=== PATIENT | male | born 1995 | race Caucasian/White ===

== ENCOUNTER 2019-12-28 21:35 | Inpatient (IN) | payer SELFPAY ==
[~2019-12-28] VITALS: Ht 175.3 cm; Wt 83.9 kg
[2019-12-28 21:46] VITALS: BP 136/86
--- NOTE | 2019-12-28 21:52 | NUR ---
PT TAKEN TO BED 7
--- NOTE | 2019-12-28 21:52 | NUR ---
Dr. Ventura examining patient.
--- NOTE | 2019-12-28 22:00 | NUR ---
This a 24-year-old male with no past medical history, presenting to the emergency department for acute onset, constant right lower quadrant pain today. Patient states that his pain originated in the mid abdomen and migrated to his right lower quadrant throughout the day. Pain is mild. Symptoms started at rest. Patient states that he had problems in the past with constipation and that this feels somewhat similar. He complains of chills earlier in the day. He states that he felt warm when his pain was at its peak. He states that he had a very small bowel movement this morning. He endorses nausea but no vomiting. No alleviating or exacerbating factors. Otherwise, no diarrhea, trauma, dysuria, or any other complaints. ALLERGY: NKDA PMH: NONE SURGICAL HX: NONE
--- NOTE | 2019-12-28 22:02 | NUR ---
LABS AT THE BEDSIDE.
--- NOTE | 2019-12-28 22:05 | NUR ---
PT GOING TO XRAY DEPARMENT
--- NOTE | 2019-12-28 22:12 | NUR ---
PT BACK FROM XRAY DEPARTMENT
[2019-12-28 22:13] LABS: BASOPHILS % (AUTO) 0.1 % (0.0-2.0); HEMATOCRIT 43.2 % (36-52); HEMOGLOBIN 14.8 g/dL (12.0-18.0); LYMPHOCYTES # (AUTO) 1.6 K/uL (2.0-11.5); LYMPHOCYTES % (AUTO) 8.8 % (20.5-51.1); MEAN CORPUSCULAR HEMOGLOBIN 29 pg (27-31); MEAN CORPUSCULAR HGB CONC 34 g/dL (33-37); MEAN CORPUSCULAR VOLUME 85.3 fL (80-94); MONOCYTES # (AUTO) 1.4 K/uL (0.8-1.0); MONOCYTES % (AUTO) 7.8 % (1.7-9.3); NEUTROPHILS # (AUTO) 14.6 K/uL (1.8-7.7); NEUTROPHILS % (AUTO) 83.3 % (42.2-75.2); PLATELET COUNT (AUTO) 228 K/uL (140-450); RED BLOOD CELL COUNT(AUTO) 5.06 MIL/uL (4.20-6.10); WHITE BLOOD COUNT (AUTO) 17.6 K/uL (4.8-10.8)
[2019-12-28] MEDS ORDERED: ONDANSETRON 4 MG/2 ML VIAL IVP ONE (23:25)
[2019-12-28] MEDS ORDERED: KETOROLAC 30 MG/ML VIAL IVP ONE (23:25)
[2019-12-28] MEDS ORDERED: NACL 0.9% 1,000 ML IV ONE (23:25)
[2019-12-28] MEDS ORDERED: metroNIDAZOLE 500 MG/NS PREMIX 100 ML IV ONE (23:25)
[2019-12-28] MEDS ORDERED: PIPERACILLIN/TAZOBACTAM 3.375 GM in DEXTROSE 5% 50 ML IV ONE (23:25)
[2019-12-28] MEDS ORDERED: PIPERACILLIN/TAZOBACTAM 3.375 GM VIAL IV ONE (23:31)
[2019-12-28] MEDS ORDERED: ACETAMINOPHEN 325 MG TAB PO PRN (23:45)
[2019-12-28] MEDS ORDERED: guaiFENesin DM 200/20 MG-10 ML 10 ML UDC PO PRN (23:45)
[2019-12-28] MEDS ORDERED: DOCUSATE SODIUM 100 MG GELCAP PO PRN (23:45)
[2019-12-28] MEDS ORDERED: POTASSIUM CHLORIDE 10 MEQ TABER PO PRN (23:45)
[2019-12-28] MEDS: DEXT 5% /NACL 0.9% 1,000 ML IV SCH (23:45)
[2019-12-28] MEDS ORDERED: ZOLPIDEM 5 MG TAB PO PRN (23:45)
[2019-12-29 00:08] LABS: ALBUMIN 4.4 g/dL (3.4-5.0); ANION GAP 14.1 (8-16); CARBON DIOXIDE 25.5 mmol/L (21-32); POTASSIUM 3.6 mmol/L (3.5-5.1); TOTAL BILIRUBIN 1.1 mg/dL (0.0-1.0)
--- NOTE | 2019-12-29 00:10 | NUR ---
CECE ARIZMENDI OBTAINED AND URINE SAMPLES.SENT IT TO THE LAB.
[2019-12-29 00:18] LABS: PROTHROMBIN TIME 10.3 secs (10.8-13.4)
[2019-12-29 00:19] LABS: CHOL/HDL RATIO 4.3 (1-4.5); FREE T4 (FREE THYROXINE) 1.2 ng/dL (0.76-1.46); PHOSPHORUS 3.6 mg/dL (2.5-4.9); THYROID STIMULATING HORMONE 0.38 uIU/mL (0.34-3.74)
[2019-12-29 00:28] LABS: APPEARANCE,URINE CLEAR (CLEAR); BILIRUBIN,URINE NEGATIVE (NEGATIVE); BLOOD, URINE NEGATIVE (NEGATIVE); COLOR,URINE YELLOW (YELLOW); LEUKOCYTE ESTERASE ,URINE NEGATIVE (NEGATIVE); NITRITE, URINE NEGATIVE (NEGATIVE); PH,URINE 7.5 (5.0-9.0); UGLUCOSE NEGATIVE (NEGATIVE)
[2019-12-29 00:35] LABS: BARBITURATE, URINE NEGATIVE ng/ml (NEG <=200); BENZODIAZEPINE, URINE NEGATIVE ng/mL (NEG <=200); CANNABINOID, URINE NEGATIVE ng/mL (NEG <=50); COCAINE, URINE NEGATIVE ng/mL (NEG <=300); OPIATE, URINE NEGATIVE ng/mL (NEG <=2000); PHENCYCLIDINE SCREEN,URINE NEGATIVE ng/mL (NEG <=25)
--- NOTE | 2019-12-29 00:45 | NUR ---
Patient will be admitted to care of DR DEGROOT. Admited to MEDICAL SURGICAL FLOOR. Will go to room 126 B. Belongings list completed. Report to FRANCES DIEGO.
[2019-12-29 01:00] VITALS: BP 132/68
--- NOTE | 2019-12-29 01:30 | NUR ---
PT CAME UP BY MANDA, ABLE TO AMBULATE INDEPENDENTLY SKIN INTACT HAS IV SITE ON LAC 18G FINISHING FLAGYL.
--- NOTE | 2019-12-29 02:15 | NUR ---
FLAGYL DONE NO C/O VOICED BY PT AT THIS TIME, MRSA SWAB DONE ADMISSION V/S IN NORMAL LIMITS.
--- NOTE | 2019-12-29 03:30 | NUR ---
PT IN BED RESTING, D5N/S HUNG AND RUNNING AT 120MLD/HR ORDERED.
[2019-12-29 05:45] LABS: BASOPHILS % (AUTO) 0.1 % (0.0-2.0); EOSINOPHILS % (AUTO) 0.1 % (0.0-4.0); HEMATOCRIT 42.8 % (36-52); HEMOGLOBIN 14.6 g/dL (12.0-18.0); LYMPHOCYTES # (AUTO) 1.8 K/uL (2.0-11.5); LYMPHOCYTES % (AUTO) 10.5 % (20.5-51.1); MEAN CORPUSCULAR HEMOGLOBIN 29 pg (27-31); MEAN CORPUSCULAR HGB CONC 34 g/dL (33-37); MEAN CORPUSCULAR VOLUME 85.8 fL (80-94); MONOCYTES # (AUTO) 1.5 K/uL (0.8-1.0); MONOCYTES % (AUTO) 8.7 % (1.7-9.3); NEUTROPHILS # (AUTO) 13.6 K/uL (1.8-7.7); NEUTROPHILS % (AUTO) 80.6 % (42.2-75.2); PLATELET COUNT (AUTO) 203 K/uL (140-450); RED BLOOD CELL COUNT(AUTO) 4.99 MIL/uL (4.20-6.10); RED CELL DISTRIBUTION WIDTH 13.6 % (11.6-13.7); WHITE BLOOD COUNT (AUTO) 16.9 K/uL (4.8-10.8)
[2019-12-29 06:01] LABS: ANION GAP 10.1 (8-16); CARBON DIOXIDE 28.8 mmol/L (21-32); POTASSIUM 3.9 mmol/L (3.5-5.1)
[2019-12-29] MEDS: HYDROcodone/APAP 7.5/325 MG 1 TAB PO PRN (06:16)
--- NOTE | 2019-12-29 06:30 | NUR ---
PT C/O OF MODERATE PAIN GIVEN NORCO PO/PRN , HE ALSO C/O OF FEVER TEMP WAS 100, HE WAS GIVEN COOLING MEASURES. WILL ENDORSE TO MONITOR.
--- NOTE | 2019-12-29 07:30 | NUR ---
RECEIVED PATIENT FROM GOSPEL SINGER NURSE JOHNATHON FOR CONTINUITY OF CARE. PATIENT IN STABLE CONDITION. RESPIRATIONS EVEN AND UNLABORED,ROOM AIR. IV INTACT AND PATENT. SAFETY MEASURES IN PLACE. CALL LIGHT WITHIN REACH. BED IN LOW POSITION. WILL CONTINUE TO MONITOR.
[2019-12-29] MEDS: DEXT 5% /NACL 0.9% 1,000 ML IV SCH ×3 (08:05→23:09)
[2019-12-29 08:30] VITALS: BP 123/69
--- NOTE | 2019-12-29 08:34 | NUR ---
PATIENT HAS BEEN SCREENED AND CATEGORIZED LOW NUTRITION RISK. PATIENT WILL BE SEEN WITHIN 7 DAYS OF ADMISSION. 01/04/[address]
--- NOTE | 2019-12-29 08:37 | NUR ---
GAVE REPORT TO DAY SHIFT NURSE FOR CONTINUITY OF CARE. PATIENT IN STABLE CONDITION.
--- NOTE | 2019-12-29 08:40 | NUR ---
ASSUMED CARE FROM FAWN. PT AAOX4. NO SOB NOTED. NO COMPLAINTS MADE AT THIS TIME. NPO MAINTAINED FOR PROCEDURE. WILL CONTINUE TO MONITOR PT.
--- NOTE | 2019-12-29 08:54 | NUR ---
DISCHARGE PLANNING: THIS IS A 24 Y/O MALE PATIENT FROM HOME, WHO CAME IN DUE TO ACUTE ONSET , CONSTANT RLQ PAIN. NO SIGNIFICANT PAST MEDICAL HISTORY. INITIAL DIAGNOSIS OF ACUTE APPENDICITIS. CURRENT LABS INCLUDE WBC 16.9, H/H 14.6/42.8, NA/K 139/3.9, BUN/CREA 9/1.0. RAPID COVID TEST NEGATIVE. UDS NEGATIVE. ON LEVAQUIN. XR ACUTE ABD SERIES NON SPECIFIC GAS FILLED LOOPS OF BOWEL. NO ACUTE CARDIOPULMONARY DISEASE. SURGICAL CONSULT IN PLACE. DC PLAN BACK TO HOME ONCE STABLE. Addendum: 12/30/19 at 1045 by Minnie Noriega CM S/P LAP APPENDECTOMY WITH [address] LANDRY 12/29/2019. ON [facility]. SEEN BY SURGERY - WITH ORDERS TO DC MINA, REBECCA ROSALES WHEN FULLY AWAKE AND ALERT. Addendum: 12/31/19 at 1054 by Minnie Noriega CM CURRENT LABS INCLUDE 14.4, H/H 11.1/33.0, BUN/CREA 6/0.9. SEEN BY SURGERY - ADVANCED DIET TOLERATED. ENCOURAGE AMBULATION WHEN FULLY AWAKE AND ALERT. REPEAT LABS IN AM. TRACY DRAIN OUTPUT OVERNIGHT 447 ML. Addendum: 01/01/20 at 0916 by Minnie Noriega CM TRACY DRAINS STILL WITH TOTAL OF 475 ML OUTPUT. WBC WENT UP TODAY 17.5. ON ZOSYN. Addendum: 01/02/20 at 1137 by Minnie Noriega CM PER DR FRANTZ ANAYA TO DC WITH TRACY DRAINS AND INFORM PATIENT TO CALL HIS OFFICE ON SUNDAY TO SET UP FOLLOW UP VISIT OP.
[2019-12-29] MEDS ORDERED: PANTOPRAZOLE 40 MG TABEC PO SCH (09:00)
--- NOTE | 2019-12-29 09:00 | NUR ---
PT WHEELED TO SURGERY IN STABLE CONDITION. NO SOB NOTED. NO COMPLAINTS MADE. CONSENT FOR PROCEDURE ALREADY SIGNED BY PT. NPO MAINTAINED.
[2019-12-29] MEDS ORDERED: BUPIVACAINE MPF 0.25% 10 ML VIAL INJ ONE ×2 (09:03→09:26)
[2019-12-29] MEDS ORDERED: DESFLURANE 240 ML BTL INH ONE (09:08)
[2019-12-29] MEDS ORDERED: SUGAMMADEX SODIUM 200 MG/2 ML VIAL IV ONE (09:08)
[2019-12-29] MEDS ORDERED: SUCCINYLCHOLINE CHLORIDE 200 MG/10 ML VIAL IVP ONE ×2 (09:08→19:15)
[2019-12-29] MEDS ORDERED: KETOROLAC 30 MG/ML VIAL ONE (09:08)
[2019-12-29] MEDS ORDERED: ONDANSETRON 4 MG/2 ML VIAL ONE ×2 (09:08→19:15)
[2019-12-29] MEDS ORDERED: fentaNYL citrate 0.05 MG/ML VIAL ONE ×2 (09:08→19:15)
[2019-12-29] MEDS ORDERED: PROPOFOL 200 MG/20 ML VIAL IV ONE ×2 (09:08→19:15)
[2019-12-29] MEDS ORDERED: HYDROmorphone PFS 2 MG/ML SYR ONE ×3 (09:08→19:15)
[2019-12-29] MEDS ORDERED: DEXAMETHASONE 4 MG/ML VIAL ONE (09:08)
[2019-12-29] MEDS ORDERED: ROCURONIUM 50 MG/5 ML VIAL IV ONE ×2 (09:08→19:15)
[2019-12-29] MEDS ORDERED: ONDANSETRON 4 MG/2 ML VIAL IVP PRN ×2 (09:30→20:40)
--- NOTE | 2019-12-29 10:04 | NUR ---
SOCIAL WORK NOTE: ANITHA CONTACTED PATIENT [phone] AND PATIENT'S EMERGENCY CONTACT, SARAH BENITEZ [phone]. ANITHA LEFT FOR EACH AND WILL FOLLOW UP TO COMPLETE ASSESSMENT. Addendum: 12/29/19 at 1209 by Morro MARKS ANITHA ATTEMPTED TO MEET PATIENT AT BEDSIDE BUT PATIENT WAS IN OR. Addendum: 12/29/19 at 1350 by Morro Woodard [facility] Patient: Kemal Arana : 1995 Age/Sex: 24/M Unit#: [id number] Room/Bed: 126/B User: Morro MARKS Date: 12/29/19 13:47 Type: Discharge Plan Assessment Patient's Orientation Person Situation Place Time Information Provided By PATIENT Comments SW CONTACTED PATIENT'S ROOM PHONE TO COMPLETE ASSESSMENT. Insulation Mechanic, Realtionship and Phone Number SARAH GONCALVES [phone] [facility] Power of Decorating And Assembly Supervisor No Does Patient Have a POLST No Identifying Problems No Social Work Triggers Is A Social Work Consult Needed No Mandate Report Filed No Explanation Of Identifying Problems PATIENT IS A 24-YEAR-OLD MALE ADMITTED FOR ACUTE APPENDICITIS. PATIENT HAS NO SIGNIFICANT PMHX. PATIENT REPORTED NO HISTORY OF SUBSTANCE ABUSE OR MENTAL HEALTH. Admitted From Home Pre-Admission Level Of Functioning Status Independent/Ambulatory Prior Resources/Services Used In Last 12 Months No Prior Resources Used Prior DME No Prior DME Used Dialysis Comments PATIENT REPORTED NOT RECEIVING DIALYSIS. Living Situation Lives With Family House Patient Had Caregiver No Home Support No Caregiver Issues Financial Issues Uninsured/Underinsured Referral To The Financial Counselor Needed No Explanation And Or Other Financial Issues SW REFERRED PATIENT TO [facility] REP JONES. Factors/Needs No D/C Needs Identified Pt/Rep Participated In Discharge Plan Yes Patient/Family Agress With Discharge Plan Yes Discharge Plan Comments TENTATIVE DISCHARGE PLAN IS FOR PATIENT TO RETURN HOME. DC Plan Status Initiated
[2019-12-29 10:14] VITALS: BP 123/69
[2019-12-29] MEDS: HYDROmorphone 1 MG/ML AMP IVP PRN ×5 (11:20→18:00)
[2019-12-29 12:00] VITALS: BP 120/70
[2019-12-29] MEDS: PIPERACILLIN/TAZOBACTAM 3.375 GM in DEXTROSE 5% 50 ML IV SCH ×3 (12:00→23:08)
--- NOTE | 2019-12-29 12:20 | NUR ---
PT BACK FROM SURGERY S/P LAP APPY. V/S MONITORING STARTED. TRACY DRAIN ON LEFT LOWER ABD DRAINING BRIGHT RED BLOOD. DRAINED 50CC IN RECOVERY
--- NOTE | 2019-12-29 14:00 | NUR ---
C/O ABD PAIN. NORCO GIVEN ORDERED
--- NOTE | 2019-12-29 15:00 | NUR ---
TRACY DRAIN DRAINING BRIGHT RED BLOOD. DRAINED 70CC
--- NOTE | 2019-12-29 15:45 | NUR ---
TRACY DRAIN DRAINING BRIGHT RED BLOOD. DRAINED 90CC. CALLED DR. LOCO. ORDERED STAT CBC, BMP AND TO CONTINUE MONITORING DRAINAGE
[2019-12-29 16:00] VITALS: BP 105/53
--- NOTE | 2019-12-29 17:00 | NUR ---
TRACY DRAIN DRAINING BRIGHT RED BLOOD. DRAINED 90CC. TOTAL DRAINAGE OF 300CC SINCE RETURN FROM OR. NOTIFIED DR. DEGROOT AND DR. LOCO
[2019-12-29 17:20] LABS: HEMATOCRIT 36.5 % (36-52); HEMOGLOBIN 12.1 g/dL (12.0-18.0); MEAN CORPUSCULAR HEMOGLOBIN 29 pg (27-31); MEAN CORPUSCULAR HGB CONC 33 g/dL (33-37); MEAN CORPUSCULAR VOLUME 86.6 fL (80-94); PLATELET COUNT (AUTO) 201 K/uL (140-450); RED BLOOD CELL COUNT(AUTO) 4.22 MIL/uL (4.20-6.10); RED CELL DISTRIBUTION WIDTH 13.4 % (11.6-13.7); WHITE BLOOD COUNT (AUTO) 13.9 K/uL (4.8-10.8)
[2019-12-29 17:36] LABS: ANION GAP 14.4 (8-16); CARBON DIOXIDE 25.6 mmol/L (21-32); CREATININE 1.2 mg/dL (0.6-1.3)
[2019-12-29 17:42] LABS: LYMPHOCYTES % (MANUAL) 8 % (20-46)
--- NOTE | 2019-12-29 18:00 | NUR ---
DR LOCO CAME AND SEEN PT. WILL DO DIAGNOSTIC LAPAROSCOPY STAT. CONSENT OBTAINED
--- NOTE | 2019-12-29 19:00 | NUR ---
PT OFF UNIT TO OR
--- NOTE | 2019-12-29 19:10 | NUR ---
RECEIVED REPORT FROM DAY SHIFT NURSE. PATIENT IS OFF UNIT TO OR. AWAITING FOR PATIENT
[2019-12-29] MEDS ORDERED: GLYCOPYRROLATE 0.2 MG/ML VIAL ONE (19:15)
[2019-12-29] MEDS ORDERED: MEPERIDINE 25 MG/ML SYR ONE (19:15)
[2019-12-29] MEDS ORDERED: NEOSTIGMINE 1:1000 10 MG/10 ML VIAL ONE (19:15)
[2019-12-29] MEDS ORDERED: SEVOFLURANE 250 ML BTL INH ONE (19:15)
[2019-12-29] MEDS ORDERED: ETOMIDATE 20 MG/10 ML VIAL IVP ONE (19:15)
[2019-12-29] MEDS ORDERED: METOCLOPRAMIDE 10 MG/2 ML INJ VIAL ONE (19:15)
[2019-12-29] MEDS ORDERED: LIDOCAINE 2% 100 MG/5 ML SYR IVP ONE (19:15)
[2019-12-29] MEDS: LACTATED RINGERS 1,000 ML IV SCH (20:36)
[2019-12-29] MEDS ORDERED: diphenhydrAMINE 50 MG/ML VIAL IVP PRN (20:40)
[2019-12-29] MEDS ORDERED: HYDROmorphone 1 MG/ML AMP IVP PRN (20:40)
[2019-12-29] MEDS ORDERED: MEPERIDINE 25 MG/ML SYR IVP PRN (20:40)
[2019-12-29] MEDS: HYDROmorphone PFS 2 MG/ML SYR ONE ×3 (21:25→21:45)
--- NOTE | 2019-12-29 22:25 | NUR ---
PT BACK FROM SURGERY. DIAGNOSTIC LAPAROSCOPIC EXAMINATION DONE. V/S MONITORING STARTED. 2 TRACY DRAIN NOTED BOTH DRAINING BRIGHT RED BLOOD. 4 INCISION NOTED WITH DRESSING IN PLACE. CLEAN AND DRY. ROSALES CATHETER DRAINING YELLOW URINE NOTED. PATIENT DENIES PAIN. WILL CONTINUE TO MONITOR.
--- NOTE | 2019-12-29 22:30 | NUR ---
CALLED PATIENTS MOM TO GIVE REPORT REGARDING PATIENT STATUS. MOM IS FULLY AWARE AND UNDERSTAND PLAN OF CARE. WILL CONTINUE TO MONITOR.
--- NOTE | 2019-12-29 23:30 | NUR ---
CHECK NG-TUBE PLACEMENT AND PATENCY. CHECKED NG-TUBE RESIDUAL OBTAINED 5CC. FLUSH WITH 20CC NS ORDER. CONNECT PATIENT NGTUBE TO LOW CONTINUOS SUCTION PER ORDER. WILL CONTINUE TO MONITOR
--- NOTE | 2019-12-30 00:10 | NUR ---
POST OP VITALS DONE. EMPTY BOTH TRACY DRAIN. TRACY A: 30CC TRACY B: 20CC OUTPUT. WILL CONTINUE TO MONITOR
[2019-12-30 00:17] LABS: BASOPHILS % (AUTO) 0.1 % (0.0-2.0); HEMATOCRIT 32.9 % (36-52); HEMOGLOBIN 11.1 g/dL (12.0-18.0); LYMPHOCYTES # (AUTO) 1.5 K/uL (2.0-11.5); LYMPHOCYTES % (AUTO) 11.3 % (20.5-51.1); MEAN CORPUSCULAR HEMOGLOBIN 29 pg (27-31); MEAN CORPUSCULAR HGB CONC 34 g/dL (33-37); MEAN CORPUSCULAR VOLUME 85.9 fL (80-94); MONOCYTES # (AUTO) 0.8 K/uL (0.8-1.0); MONOCYTES % (AUTO) 5.8 % (1.7-9.3); NEUTROPHILS # (AUTO) 11.2 K/uL (1.8-7.7); NEUTROPHILS % (AUTO) 82.8 % (42.2-75.2); PLATELET COUNT (AUTO) 174 K/uL (140-450); RED BLOOD CELL COUNT(AUTO) 3.83 MIL/uL (4.20-6.10); RED CELL DISTRIBUTION WIDTH 13.5 % (11.6-13.7); WHITE BLOOD COUNT (AUTO) 13.6 K/uL (4.8-10.8)
[2019-12-30 01:05] VITALS: BP 108/62
[2019-12-30] MEDS: HYDROmorphone 1 MG/ML AMP IVP PRN ×2 (01:38→10:02)
--- NOTE | 2019-12-30 02:21 | NUR ---
CHECKED PATIENT. PATIENT SLEEPING RESPIRATION EVEN UNLABORED ON ROOM AIR. NO DISTRESS NOTED.
[2019-12-30] MEDS ORDERED: LEVOFLOXACIN 750 MG/D5W PREMIX 150 ML IV SCH (03:00)
[2019-12-30] MEDS: LACTATED RINGERS 1,000 ML IV SCH ×3 (04:56→21:36)
[2019-12-30] MEDS: PIPERACILLIN/TAZOBACTAM 3.375 GM in DEXTROSE 5% 50 ML IV SCH ×3 (05:02→17:47)
[2019-12-30 05:12] LABS: BASOPHILS % (AUTO) 0.2 % (0.0-2.0); HEMATOCRIT 34.7 % (36-52); HEMOGLOBIN 11.7 g/dL (12.0-18.0); LYMPHOCYTES # (AUTO) 1.7 K/uL (2.0-11.5); LYMPHOCYTES % (AUTO) 11.8 % (20.5-51.1); MEAN CORPUSCULAR HEMOGLOBIN 29 pg (27-31); MEAN CORPUSCULAR HGB CONC 34 g/dL (33-37); MEAN CORPUSCULAR VOLUME 86.4 fL (80-94); MONOCYTES % (AUTO) 7.3 % (1.7-9.3); NEUTROPHILS # (AUTO) 11.5 K/uL (1.8-7.7); NEUTROPHILS % (AUTO) 80.7 % (42.2-75.2); PLATELET COUNT (AUTO) 199 K/uL (140-450); RED BLOOD CELL COUNT(AUTO) 4.02 MIL/uL (4.20-6.10); RED CELL DISTRIBUTION WIDTH 13.6 % (11.6-13.7); WHITE BLOOD COUNT (AUTO) 14.2 K/uL (4.8-10.8)
[2019-12-30 05:24] LABS: ANION GAP 10.6 (8-16); CARBON DIOXIDE 27.2 mmol/L (21-32); CREATININE 1.1 mg/dL (0.6-1.3); POTASSIUM 3.8 mmol/L (3.5-5.1)
--- NOTE | 2019-12-30 06:00 | NUR ---
UPDATED DR. LANDRY IN REGARDS TO PATIENT TRACY DRAINAGE OUTPUT FOR THE WHOLE UNLOADER. TRACY (A) RIGHT 50CC TRACY (B) LEFT 70CC DRAINING BRIGHT RED BLOOD.
--- NOTE | 2019-12-30 06:29 | NUR ---
TRACY RIGHT (A) TOTAL OUTPUT 55, TRACY LEFT (B) TOTAL OUTPUT 90 BOTH DRAINING BRIGHT RED BLOOD. DRESSING STILL INTACT AND DRY.
[2019-12-30] MEDS ORDERED: LACTATED RINGERS 1,000 ML IV SCH (07:10)
--- NOTE | 2019-12-30 07:20 | NUR ---
RECEIVED REPORT FROM NIGHT NURSE FOR CONTINUITY OF CARE, PT IS STABLE, PT IS S/P LAP APPENDECTOMY WITH 4 INCISION, 2 TRACY DRAIN DRAINING SEROSANGUINEOUS BLOOD, PT HAS LAC 18G INFUSING D5NS AT 120 ML/H, PT HAS LEFT NARES NGT TO CONTINUOUS SUCTION AND WATER FLUSH OF 20ML Q6H, LAST WATER FLUSH WAS AT 0530AM, ROSALES CATH IN PLACE, PT ON ROOM AIR, NO SIGNS OF DISTRESS NOTED, RESPIRATIONS ARE EVEN AND UNLABORED ON ROOM AIR, CALL LIGHT WITHIN REACH, WILL CONTINUE TO MONITOR,
--- NOTE | 2019-12-30 07:26 | NUR ---
ENDORSED PATIENT TO DAY SHIFT NURSE AT BEDSIDE FOR CONTINUITY OF CARE
[2019-12-30 08:00] VITALS: BP 118/62
[2019-12-30] MEDS: PANTOPRAZOLE 40 MG INJ VIAL IVP SCH (08:58)
--- NOTE | 2019-12-30 09:06 | NUR ---
ADMINISTERED SCHEDULED MEDICATION, AND LR BOLUS ORDERED, MEDICATION EDUCATION PROVIDED, PT NODDED UNDERSTANDING, PT IS STABLE, NO SIGNS OF DISTRESS NOTED, CALL LIGHT WITHIN REACH, WILL CONTINUE TO MONITOR.
[2019-12-30] MEDS: DEXT 5% /NACL 0.9% 1,000 ML IV SCH (10:01)
--- NOTE | 2019-12-30 10:08 | NUR ---
ADMINISTERED DILAUDID FOR ABDOMINAL PAIN 12/03 SHARP, MEDICATION EDUCATION PROVIDED, PT VERBALIZED UNDERSTANDING, PT TOLERATED WELL, PT IS STABLE, CALL LIGHT WITHIN REACH, WILL CONTINUE TO MONITOR.
--- NOTE | 2019-12-30 10:45 | NUR ---
REMOVED NGT AND ROSALES CATH PER MD ORDER, PT TOLERATED WELL, PT IS STABLE, CALL LIGHT WITHIN REACH, WILL CONTINUE TO MONITOR.
[2019-12-30] MEDS: POTASSIUM CHL 20 MEQ/D5-1/2NS 1,000 ML IV SCH ×3 (11:41→23:22)
--- NOTE | 2019-12-30 11:46 | NUR ---
ADMINISTERED SCHEDULED FLUIDS, FLUIDS EDUCATION PROVIDED, PT VERBALIZED UNDERSTANDING, PT TOLERATED WELL, PT IS STABLE, NO SIGNS OF DISTRESS NOTED, CALL LIGHT WITHIN REACH, WILL CONTINUE TO MONITOR.
--- NOTE | 2019-12-30 11:49 | NUR ---
NOTIFIED DR SIERRA PT HAS HX OF DM BUT NO GLUCOSE CHECKS, NEED TYLENOL PRN, RECEIVED TORB FOR ACCU-CHECKS AND TYLENOL 650 MG PO TAB Q4H PRN, WILL INPUT AND CARRY IT OUT. Addendum: 12/30/19 at 1215 by Denisha Esquivel RN PING EDEN
[2019-12-30 11:54] LABS: BASOPHILS % (AUTO) 0.3 % (0.0-2.0); HEMATOCRIT 34.1 % (36-52); HEMOGLOBIN 11.4 g/dL (12.0-18.0); LYMPHOCYTES # (AUTO) 1.2 K/uL (2.0-11.5); LYMPHOCYTES % (AUTO) 7.7 % (20.5-51.1); MEAN CORPUSCULAR HEMOGLOBIN 29 pg (27-31); MEAN CORPUSCULAR HGB CONC 33 g/dL (33-37); MEAN CORPUSCULAR VOLUME 86.6 fL (80-94); MONOCYTES # (AUTO) 1.2 K/uL (0.8-1.0); MONOCYTES % (AUTO) 7.6 % (1.7-9.3); NEUTROPHILS # (AUTO) 13.3 K/uL (1.8-7.7); NEUTROPHILS % (AUTO) 84.4 % (42.2-75.2); PLATELET COUNT (AUTO) 206 K/uL (140-450); RED BLOOD CELL COUNT(AUTO) 3.94 MIL/uL (4.20-6.10); RED CELL DISTRIBUTION WIDTH 13.3 % (11.6-13.7); WHITE BLOOD COUNT (AUTO) 15.7 K/uL (4.8-10.8)
[2019-12-30] MEDS ORDERED: DEXTROSE 50% 50 ML SYR IVP PRN (11:55)
[2019-12-30] MEDS ORDERED: ACETAMINOPHEN 325 MG TAB PO PRN (11:55)
[2019-12-30] MEDS ORDERED: INSULIN LISPRO SLIDING SCALE 100 UNITS/ML VIAL SUBQ PRN (11:55)
--- NOTE | 2019-12-30 12:14 | NUR ---
ADMINISTERED SCHEDULED MEDICATION, MEDICATION EDUCATION PROVIDED, PT VERBALIZED UNDERSTANDING, PT TOLERATED WELL, PT IS STABLE, CALL LIGHT WITHIN REACH. WILL CONTINUE TO MONITOR.
[2019-12-30 12:20] LABS: T4 (THYROXINE) 8.4 ug/dL (4.5-12.0)
[2019-12-30] MEDS: HYDROcodone/APAP 7.5/325 MG 1 TAB PO PRN ×2 (13:28→22:04)
--- NOTE | 2019-12-30 13:32 | NUR ---
ADMINISTERED NORCO FOR ABDOMINAL PAIN OF 6/10, SHARP PAIN, MEDICATION EDUCATION PROVIDED, PT VERBALIZED UNDERSTANDING, PT TOLERATED WELL, PT IS STABLE, CALL LIGHT WITHIN REACH, WILL CONTINUE TO MONITOR.
--- NOTE | 2019-12-30 15:00 | NUR ---
PT ASLEEP IN BED, NO SIGNS OF DISTRESS NOTED, RESPIRATION ARE EVEN AND UNLABORED ON ROOM AIR, CALL LIGHT WITHIN REACH, WILL CONTINUE TO MONITOR.
[2019-12-30 16:00] VITALS: BP 126/80
[2019-12-30] MEDS ORDERED: BLOOD GLUCOSE MONITORING 1 DEV DEV FS SCH (16:30)
--- NOTE | 2019-12-30 17:54 | NUR ---
ADMINISTERED SCHEDULED MEDICATION, MEDICATION EDUCATION PROVIDED, PT VERBALIZED UNDERSTANDING, PT TOLERATED WELL, PT IS STABLE, NO SIGNS OF RESPIRATORY DISTRESS NOTED, COOLING MEASURES IN PLACE, CALL LIGHT WITHIN REACH, WILL CONTINUE TO MONITOR.
--- NOTE | 2019-12-30 18:30 | NUR ---
SEND TEXT TO DR DEGROOT AND DR LANDRY ABOUT PT STATUS AND TRACY DRAIN OUTPUT, AWAITING RETURN CALL FROM .
[2019-12-30 19:13] LABS: BASOPHILS % (AUTO) 0.1 % (0.0-2.0); HEMOGLOBIN 11.7 g/dL (12.0-18.0); LYMPHOCYTES # (AUTO) 1.2 K/uL (2.0-11.5); LYMPHOCYTES % (AUTO) 7.3 % (20.5-51.1); MEAN CORPUSCULAR HEMOGLOBIN 29 pg (27-31); MEAN CORPUSCULAR HGB CONC 33 g/dL (33-37); MONOCYTES # (AUTO) 1.3 K/uL (0.8-1.0); NEUTROPHILS # (AUTO) 13.6 K/uL (1.8-7.7); NEUTROPHILS % (AUTO) 84.6 % (42.2-75.2); PLATELET COUNT (AUTO) 212 K/uL (140-450); RED BLOOD CELL COUNT(AUTO) 4.07 MIL/uL (4.20-6.10); RED CELL DISTRIBUTION WIDTH 13.4 % (11.6-13.7); WHITE BLOOD COUNT (AUTO) 16.1 K/uL (4.8-10.8)
--- NOTE | 2019-12-30 19:20 | NUR ---
ENDORSE PT TO NIGHT NURSE FOR CONTINUITY OF CARE, PT IS STABLE
--- NOTE | 2019-12-30 19:21 | NUR ---
RECD. RESTING IN BED, AWAKE, A/OX4. RESPIRATION EVEN AND UNLABORED. IV OF D5 0.45 NS + 20 MEQ KCL INFUSING AT 120 ML/HR, LEFT AC G18. INCISION IN THE ABDOMEN (4), COVERED WITH DRESSING ALL DRY AND INTACT, TWO TRACY DRAINING SEROSANGUINEOUS BLOOD, WILL MONITOR AMOUNT THROUGHOUT SHIFT. ON BILATERAL LEG SEQUENTIALS. TOLERATING CLEAR LIQUID, VOIDING WELL, PASSING SMALL AMOUNT OF GAS, ABLE TO AMBULATE FROM BED TO BR. PIN IN THE ABDOMEN 04/04, TOLERABLE. PLAN OF CARE FOR THE SHIFT DISCUSSED. VERBALIZED UNDERSTANDING.
--- NOTE | 2019-12-30 20:30 | NUR ---
UPDATED Javier LANDRY ON PATIENT STATUS, NO FEVER AT THIS TIME. TRACY DRAIN IS WITHIN PARAMETER, VITAL SIGN STABLE. HEMOGLOBIN FOR 1904 BLOOD DRAW INCREASED FROM 11.4 TO 11.7. WILL COME TO SEE PATIENT TOMORROW AM.
--- NOTE | 2019-12-30 21:45 | NUR ---
AMBULATED TO BR, HAD A SMALL AMOUNT OF LOOSE YELLOWISH BM.
--- NOTE | 2019-12-30 21:45 | NUR ---
Patient's Plan of Care was discussed and reviewed with SCIENTIFIC RESEARCH MANAGER: AMY FRANCIS.
[2019-12-31] VITALS: BP 127/80
--- NOTE | 2019-12-31 | NUR ---
SLEEPING COMFORTABLY IN BED.
[2019-12-31] MEDS: PIPERACILLIN/TAZOBACTAM 3.375 GM in DEXTROSE 5% 50 ML IV SCH ×4 (00:58→18:11)
--- NOTE | 2019-12-31 02:00 | NUR ---
AMBULATED TO BATHROOM TO VOID. BACK TO BED AFTER VOIDING.
[2019-12-31] MEDS: POTASSIUM CHL 20 MEQ/D5-1/2NS 1,000 ML IV SCH ×2 (03:00→11:19)
--- NOTE | 2019-12-31 04:30 | NUR ---
REQUESTED NURSE TO PUT ON ABDOMINAL BINDER.
[2019-12-31] MEDS: HYDROcodone/APAP 7.5/325 MG 1 TAB PO PRN ×2 (04:46→18:07)
[2019-12-31 05:10] LABS: BASOPHILS % (AUTO) 0.1 % (0.0-2.0); EOSINOPHILS % (AUTO) 0.1 % (0.0-4.0); HEMOGLOBIN 11.1 g/dL (12.0-18.0); LYMPHOCYTES # (AUTO) 1.4 K/uL (2.0-11.5); LYMPHOCYTES % (AUTO) 9.7 % (20.5-51.1); MEAN CORPUSCULAR HEMOGLOBIN 29 pg (27-31); MEAN CORPUSCULAR HGB CONC 34 g/dL (33-37); MEAN CORPUSCULAR VOLUME 86.1 fL (80-94); MONOCYTES # (AUTO) 1.3 K/uL (0.8-1.0); MONOCYTES % (AUTO) 9.1 % (1.7-9.3); NEUTROPHILS # (AUTO) 11.7 K/uL (1.8-7.7); PLATELET COUNT (AUTO) 215 K/uL (140-450); RED BLOOD CELL COUNT(AUTO) 3.83 MIL/uL (4.20-6.10); RED CELL DISTRIBUTION WIDTH 13.3 % (11.6-13.7); WHITE BLOOD COUNT (AUTO) 14.4 K/uL (4.8-10.8)
[2019-12-31] MEDS: LACTATED RINGERS 1,000 ML IV SCH (05:56)
[2019-12-31 06:04] LABS: ANION GAP 8.1 (8-16); CARBON DIOXIDE 29.7 mmol/L (21-32); CREATININE 0.9 mg/dL (0.6-1.3); POTASSIUM 3.8 mmol/L (3.5-5.1)
--- NOTE | 2019-12-31 06:30 | NUR ---
SLEEPING COMFORTABLY IN BED.
--- NOTE | 2019-12-31 07:25 | NUR ---
CONDITION REMAIN STABLE. ENDORSED TO AM SHIFT NURSE FOR CONTINUITY OF CARE.
--- NOTE | 2019-12-31 07:26 | NUR ---
RECEIVED ENDORSEMENT FROM PIGEON FANCIER, AWAKE, ALERT AND ORIENTEDX4, BREATHING SPONTANEOUSLY AT ROOM AIR, NOT IN DISTRESS NOTED. WITH ONGOING IV FLUID D5 1/2NS + 20MEQ POTASSIUM CHLORIDE AT 120ML/HOUR INFUSING ALT LEFT AC, G18 AV CANNULA NOTED. S/P [POST LAP APPENDECTOMY WITH BILATERAL TRACY DRAIN NOTED. SAFETY MEASURES IN PLACE AND CONTINUE MONITOR.
[2019-12-31 08:00] VITALS: BP 129/77
[2019-12-31] MEDS: PANTOPRAZOLE 40 MG INJ VIAL IVP SCH (09:11)
--- NOTE | 2019-12-31 09:21 | NUR ---
DUE MEDICATION GIVEN, RT TRACY DRAINED AT 95ML AND LEFT TRACY DRAINED TOTAL 170ML SEROUS NOTED. DUE MEDICATION GIVEN. LEFT TRACY SITE DRESSING CHANGED, SOAKED WITH BLOOD NOTED
[2019-12-31] MEDS: HYDROmorphone 1 MG/ML AMP IVP PRN (10:10)
[2019-12-31] MEDS: ONDANSETRON 4 MG/2 ML VIAL IM/IVP PRN ×2 (10:11→15:43)
--- NOTE | 2019-12-31 10:19 | NUR ---
COMPLAINED OF PAIN AT SURGICAL SITE 12/03 VERBALIZED, NAUSEATED AND HICCUP NOTED, ONDASETRON AND DILAUDID 1MG IV ORDERED PRN GIVEN. SEEN AND EXAMINED BY DR. LANDRY, ORDERED TO START FULL LIQUID AT LUNCH AND REGULAR DIET AT DINNER.
--- NOTE | 2019-12-31 11:35 | NUR ---
APPARENTLY ASLEEP, NO COMPLAINED OF PAIN NOTED
--- NOTE | 2019-12-31 12:47 | NUR ---
UNABLE TO PASS FLATUS SINE 6AM, ENCOURAGE TO AMBULATE BESIDE THE BED IF TOLERATED, VERBALIZED UNDERSTANDING
--- NOTE | 2019-12-31 15:46 | NUR ---
APPARENTLY NAUSEATED, ONDASETRON IV ORDERED PRN GIVEN
[2019-12-31 16:00] VITALS: BP 131/78
--- NOTE | 2019-12-31 18:11 | NUR ---
ABLE TO PASSED FLATUS, APPARENTLY COMPLAINED OF ABDOMINAL PAIN 5/10 AND CONSTIPATED. COLACE AND NORCO PO GIVEN ORDERED PRN GIVEN. REGULAR DIET SERVED, INSTRUCTED TO EAT GRADUALLY.
--- NOTE | 2019-12-31 19:11 | NUR ---
ENDORSED TO HOT TOP LINER HELPER IN STABLE CONDITION FOR CONTINUITY OF CARE
--- NOTE | 2019-12-31 19:12 | NUR ---
RECD RESTING IN BED, CONVERSING WITH SOMEBODY IN HIS CELLPHONE. A/OX4, RESPIRATION EVEN AND UNLABORED. IV OF D5 0.45 NS + 20 MEQ KCL AT 20 ML/HR, LEFT AC G18. SURGICAL INCISION IN THE ABDOMEN (4) COVERED WITH DRESSING, ALL DRY AND INTACT, WITH TWO TRACY DRAINING SANGUINEOUS FLUID, MODERATE AMOUNT. ON BILATERAL LEG SEQUENTIALS. PLAN OF CARE DISCUSSED. VERBALIZED UNDERSTANDING. PAIN IN THE ABDOMEN 04/04, STATED TOLERABLE.
--- NOTE | 2019-12-31 23:00 | NUR ---
Patient's Plan of Care was discussed and reviewed with THIRD RIGGER: AMY FRANCIS
[2019-12-31] MEDS ORDERED: LIDOCAINE VISCOUS 2% 20 ML UDC PO SCH (23:10)
[2019-12-31] MEDS ORDERED: ALUMINUM HYD/MAG/SIMETHICONE 30 ML UDC PO SCH (23:10)
[2019-12-31] MEDS ORDERED: DICYCLOMINE HCL LIQUID 10 MG/5 ML UDC PO SCH (23:10)
[2019-12-31] MEDS ORDERED: PANTOPRAZOLE 40 MG TABEC PO SCH ×2 (23:20→23:45)
[2019-12-31] MEDS ORDERED: PANTOPRAZOLE 40 MG TABEC PO ONE (23:40)
[2019-12-31] MEDS: MORPHINE SULFATE 2 MG/ML SYR IVP PRN (23:56)
[2020-01-01] VITALS: BP 124/61
--- NOTE | 2020-01-01 | NUR ---
SLEEPING COMFORTABLY IN BED.
[2020-01-01] MEDS: PIPERACILLIN/TAZOBACTAM 3.375 GM in DEXTROSE 5% 50 ML IV SCH ×5 (00:01→23:57)
--- NOTE | 2020-01-01 01:40 | NUR ---
COMPLAINED OF HICCUP, MEDICATED WITH BENTYL, MAALOX AND LIDOCAINE VISCOUS PER MD ORDER.
--- NOTE | 2020-01-01 02:40 | NUR ---
STATED THAT THE THREE MEDICATIONS HE TOOK DOES NOT DO WELL UNLIKE PROTONIX IV YESTERDAY. WILL INFORM .
--- NOTE | 2020-01-01 04:00 | NUR ---
STILL SLEEPING COMFORTABLY IN BED.
[2020-01-01 05:21] LABS: BASOPHILS % (AUTO) 0.2 % (0.0-2.0); EOSINOPHILS # (AUTO) 0.1 K/uL (0-0.4); EOSINOPHILS % (AUTO) 0.4 % (0.0-4.0); HEMATOCRIT 36.3 % (36-52); HEMOGLOBIN 12.1 g/dL (12.0-18.0); LYMPHOCYTES % (AUTO) 11.2 % (20.5-51.1); MEAN CORPUSCULAR HEMOGLOBIN 29 pg (27-31); MEAN CORPUSCULAR HGB CONC 33 g/dL (33-37); MONOCYTES # (AUTO) 1.6 K/uL (0.8-1.0); MONOCYTES % (AUTO) 9.1 % (1.7-9.3); NEUTROPHILS # (AUTO) 13.8 K/uL (1.8-7.7); NEUTROPHILS % (AUTO) 79.1 % (42.2-75.2); PLATELET COUNT (AUTO) 355 K/uL (140-450); RED BLOOD CELL COUNT(AUTO) 4.22 MIL/uL (4.20-6.10); RED CELL DISTRIBUTION WIDTH 13.1 % (11.6-13.7); WHITE BLOOD COUNT (AUTO) 17.5 K/uL (4.8-10.8)
[2020-01-01] MEDS: HYDROcodone/APAP 7.5/325 MG 1 TAB PO PRN ×2 (05:22→19:07)
[2020-01-01 05:34] LABS: ANION GAP 10.8 (8-16); CARBON DIOXIDE 26.1 mmol/L (21-32); CREATININE 0.9 mg/dL (0.6-1.3); POTASSIUM 3.9 mmol/L (3.5-5.1)
--- NOTE | 2020-01-01 06:00 | NUR ---
ABLE TO EMPTY WITH RIGHT TRACY - 275 ML FLUID, LEFT TRACY - 400 ML, A TOTAL OF 675 ML OF SANGUINEUS FLUID.
--- NOTE | 2020-01-01 07:15 | NUR ---
CONDITION REMAIN STABLE. ENDORSED TO AM SHIFT NURSE FOR CONTINUITY OF CARE.
--- NOTE | 2020-01-01 07:16 | NUR ---
RECEIVED ENDORSEMENT FROM PAINTER AND PAPERHANGER APPRENTICE, AWAKE,ALERT,ORIENTEDX4, BREATHING SPONTANEOUSLY AT ROOM AIR. WITH ONGOING IV FLUID D5 1/2NS +20MEQ POTASSIUM CHLORIDE AT 20ML/HOUR INFUSING AT LEFT AC, G 18 IV CANNULA NOTED. WITH DRY AND INTACT DRESSING AT SURGICAL INCISION SITE, WITH BILATERAL TRACY DRAIN AND SEROUS OUTPUT NOTED. SAFETY MEASURES IN PLACE AND CONTINUE MONITOR
[2020-01-01 08:00] VITALS: BP 130/82
--- NOTE | 2020-01-01 09:39 | NUR ---
SEEN AND EXAMINED BY DR. DEGROOT. RT TRACY DRAIN-100ML, LEFT TRACY DRAIN-50ML SEROUS OUTPUT NOTED. STILL WITH HICCUP AND ENCOURAGE TO AMBULATE AROUND THE ROOM.
--- NOTE | 2020-01-01 10:55 | NUR ---
SEEN AND EXAMINED BY DR. LANDRY, MADE AWARE WITH TRACY OUTPUT TOTAL FOR [address] DEGROOT CONTACTED AND HE DISCUSSED THE PLAN AND TREATMENT. FOR CT ABDOMEN/PELVIS TOMORROW AND ID CONSULT.
[2020-01-01] MEDS: POTASSIUM CHL 20 MEQ/D5-1/2NS 1,000 ML IV SCH (11:01)
[2020-01-01] MEDS: MORPHINE SULFATE 2 MG/ML SYR IVP PRN (12:17)
--- NOTE | 2020-01-01 12:21 | NUR ---
COMPLAINED OF ABDOMINAL PAIN, 10/02, MORPHINE 1MG IV ORDERED PRN GIVEN
--- NOTE | 2020-01-01 14:58 | NUR ---
ASLEEP, BREATHING SPONTANEOUSLY AT ROOM AIR, NOT IN DISTRESS NOTED.
[2020-01-01 16:00] VITALS: BP 119/69
--- NOTE | 2020-01-01 17:38 | NUR ---
FULLY AWAKE AND ALERT, NO COMPLAINED OF PAIN. DUE MEDICATION GIVEN.
--- NOTE | 2020-01-01 19:04 | NUR ---
COMPLAINED OF ABDOMINAL PAIN, 10/02. NORCO 1 TAB PO ORDERED PRN GIVEN
--- NOTE | 2020-01-01 19:19 | NUR ---
ENDORSED TO MARINE OPERATIONS COORDINATOR IN STABLE CONDITION FOR CONTINUITY OF CARE.
--- NOTE | 2020-01-01 19:20 | NUR ---
RECEIVED BEDSIDE REPORT FROM DAY RN. PT IS AAOX4. RESPIRATIONS ARE EQUAL AND UNLABORED ON ROOM AIR. PT IS S/P EXPLORATORY LAPAROTOMY MID ABD DRESSING IS C/D/I. PT WITH TWO TRACY DRAINS DRAINING BLOODY DRAINAGE. SURGERY WAS ON 12/[address] LANDRY. NOW ON REGULAR DIET AND TOLERATING WELL. PT IS AMBULATORY AND ENCOURAGE TO AMBULATE IN ROOM AND INSTRUCT TO USE IS PT VERBALIZED UNDERSTANDING. POC DISCUSSED WITH PT. PT WILL CONTINUE ON ZOSYN Q6H AND PAIN MANAGEMENT. CALL LIGHT IS WITHIN REACH. WILL CONTINUE TO MONITOR.
--- NOTE | 2020-01-01 20:30 | NUR ---
ASSESSMENT DONE. PT REPORT PAIN IS TOLERABLE /. EMPTIED L TRACY: 20CC RED DRAINAGE AND R TRACY 30CC RED DRAINAGE. EDUCATED PT ON AMBULATING AND ON PROPER USAGE OF INCEPTIVE SPIROMETER TO HELP PREVENT PNA. PT VERBALIZED UNDERSTANDING AND ABLE TO DEMONSTRATE BACK CORRECT USE OF IS. ALL NEEDS MET. CALL LIGHT IS WITHIN REACH.
--- NOTE | 2020-01-01 21:15 | NUR ---
PT IS AMBULATING IN HALLWAY DENIES ANY SOB, PAIN OR DIZZINESS. WILL CONTINUE TO MONITOR.
[2020-01-02] VITALS: BP 126/73
[2020-01-02] MEDS ORDERED: ACETAMINOPHEN 325 MG TAB PO PRN (00:25)
--- NOTE | 2020-01-02 00:41 | NUR ---
VSS PT SLIGHT TEMP 100.2 ADMINISTERED PRN TYLENOL, REMOVED BLANKETS WILL RECHECK TEMP. ALL NEEDS MET. CALL LIGHT IS WITHIN REACH.
--- NOTE | 2020-01-02 01:40 | NUR ---
RECHECKED TEMP NOW 98.6. ALL NEEDS MET. WILL CONTINUE TO MONITOR.
--- NOTE | 2020-01-02 02:45 | NUR ---
ROUNDS MADE. PT IS SLEEPING COMFORTABLY IN BED WITH EYES CLOSED. CHEST RISE AND FALL NOTED. SAFETY MEASURES ARE IN PLACE. WILL CONTINUE TO MONITOR.
--- NOTE | 2020-01-02 04:15 | NUR ---
PT IS SLEEPING COMFORTABLY IN BED. RESPIRATIONS ARE EQUAL AND UNLABORED. EMPTIED A TRACY: 50CC BLOODY DRAINAGE B TRACY EMPTIED 20CC BLOODY DRAINAGE. CALL LIGHT IS WITHIN REACH. WILL CONTINUE TO MONITOR.
[2020-01-02] MEDS: PIPERACILLIN/TAZOBACTAM 3.375 GM in DEXTROSE 5% 50 ML IV SCH ×2 (05:02→12:08)
[2020-01-02 05:23] LABS: BASOPHILS % (AUTO) 0.2 % (0.0-2.0); EOSINOPHILS # (AUTO) 0.3 K/uL (0-0.4); EOSINOPHILS % (AUTO) 2.1 % (0.0-4.0); HEMATOCRIT 33.2 % (36-52); HEMOGLOBIN 11.1 g/dL (12.0-18.0); LYMPHOCYTES # (AUTO) 2.2 K/uL (2.0-11.5); LYMPHOCYTES % (AUTO) 18.2 % (20.5-51.1); MEAN CORPUSCULAR HEMOGLOBIN 29 pg (27-31); MEAN CORPUSCULAR HGB CONC 33 g/dL (33-37); MONOCYTES # (AUTO) 1.6 K/uL (0.8-1.0); MONOCYTES % (AUTO) 12.8 % (1.7-9.3); NEUTROPHILS # (AUTO) 8.2 K/uL (1.8-7.7); NEUTROPHILS % (AUTO) 66.7 % (42.2-75.2); PLATELET COUNT (AUTO) 316 K/uL (140-450); RED BLOOD CELL COUNT(AUTO) 3.86 MIL/uL (4.20-6.10); RED CELL DISTRIBUTION WIDTH 13.3 % (11.6-13.7); WHITE BLOOD COUNT (AUTO) 12.3 K/uL (4.8-10.8)
[2020-01-02 05:53] LABS: ANION GAP 7.2 (8-16); CARBON DIOXIDE 31.9 mmol/L (21-32); POTASSIUM 4.1 mmol/L (3.5-5.1)
--- NOTE | 2020-01-02 07:25 | NUR ---
GAVE BEDSIDE REPORT TO DAY RN. PT ENDORSED IN STABLE CONDITION.
--- NOTE | 2020-01-02 07:26 | NUR ---
RECEIVED BEDSIDE REPORT FROM FURNACE MASON NURSE PRISCILLA RN, PT RESTING, NO DISTRESS NOTED, ALERT ORIENTED X4, ABLE TO LET NEEDS KNOWN, IV TO LAC 18G PATENT INTACT, INFUSING D5 1/2NS 20MEQ KCL @ 20ML/HR, INFUSING WELL, PT ON ROOM AIR NO SOB NOTED. PT HAS INCISION TO THE ABDOMEN WITH TRACY DRAIN TO THE LEFT AND RIGHT INCISION, DRESSING CLEAN DRY AND INTACT, TRACY DRAIN IN PLACE DRAINING SEROSANGUINOUS FLUID. PT DENIES PAIN AT THIS MOMENT, INITIAL ASSESSMENT DONE, ALL SAFETY PRECAUTION MET, CALL LIGHT WITHIN REACH, WILL CONTINUE TO MONITOR.
[2020-01-02 08:00] VITALS: BP 116/72
--- NOTE | 2020-01-02 08:00 | NUR ---
PT WENT TO CT FOR CT ABD/PELVIS.
--- NOTE | 2020-01-02 08:15 | NUR ---
PT CAME BACK FROM CT, TOLERATED WELL.
--- NOTE | 2020-01-02 10:00 | NUR ---
DR. LANDRY AT BEDSIDE, PER TO DC FLUID AND PUT PT ON SL, AND PER DR LANDRY PT CAN GO HOME TODAY, AWAITING FOR ID FOR PO ANTIBIOTIC. WILL FOLLOW UP WITH ID.
--- NOTE | 2020-01-02 12:08 | NUR ---
MEDICATION ORDERED ZOSYN ADMINISTERED, PT TOLERATED WELL, NO DISTRESS NOTED, WILL CONTINUE TO MONITOR.
[2020-01-02] MEDS ORDERED: DOCU-299 PO (12:10)
[2020-01-02] MEDS ORDERED: LEVO500T98 PO (12:10)
[2020-01-02] MEDS ORDERED: METR500T1 PO (12:10)
[2020-01-02 12:57] VITALS: BP 116/72
--- NOTE | 2020-01-02 14:20 | NUR ---
ALL DISCHARGE PAPERS SIGNED, PT STATED UNDERSTANDING DISCHARGE INSTRUCTIONS. INSTRUCT PT HOW TO EMPTY TRACY DRAINS AND TO KEEP INCISIONS CLEAN AND DRESSING DRY AND INTACT UNTIL PT SEE DR. LANDRY AT HIS OFFICE. PT STATED UNDERSTANDING. EDUCATE PT REGARDING ANTIBIOTICS ORDERED TO TAKE MEDICATIONS PER PERSCRIPTION. PT STATED UNDERSTANDING.
--- NOTE | 2020-01-02 15:05 | NUR ---
PT LEFT UNIT IN STABLE CONDITION, PT TO DC HOME PICKED UP BY FAMILY. IV TAKEN OUT CATH INTACT, WRISTBANDS TAKEN OFF. TRACY DRAIN INTACT, DRESSING CLEAN DRY AND INTACT.
== END 2020-01-02 15:05 | disposition home or self-care (01) | DRG 339 ==
LOC: MED 21:35 → MMU 12-29
PROVIDERS: ADMIT Family Medicine; ATTEND Family Medicine
PROC: 0W9J40Z Drainage of Pelvic Cavity with Drainage Device, Percutaneous Endoscopic Approach (ICD-10-PCS; 2019-12-29)
PROC: 0W9J40Z Drainage of Pelvic Cavity with Drainage Device, Percutaneous Endoscopic Approach (ICD-10-PCS; 2019-12-29)
PROC: 0W3P4ZZ Control Bleeding in Gastrointestinal Tract, Percutaneous Endoscopic Approach (ICD-10-PCS; 2019-12-29)
PROC: 0D9H40Z Drainage of Cecum with Drainage Device, Percutaneous Endoscopic Approach (ICD-10-PCS; 2019-12-29)
PROC: 0DTJ4ZZ Resection of Appendix, Percutaneous Endoscopic Approach (ICD-10-PCS; principal; 2019-12-29 08:30)
DX: K35.32 Acute appendicitis with perforation, localized peritonitis, and gangrene, without abscess (principal); E87.1 Hypo-osmolality and hyponatremia; J98.11 Atelectasis; J90 Pleural effusion, not elsewhere classified; Z20.828 Contact with and (suspected) exposure to other viral communicable diseases; F17.210 Nicotine dependence, cigarettes, uncomplicated; K59.00 Constipation, unspecified; E78.5 Hyperlipidemia, unspecified; R00.1 Bradycardia, unspecified; R00.0 Tachycardia, unspecified; D50.0 Iron deficiency anemia secondary to blood loss (chronic); E83.51 Hypocalcemia; R73.9 Hyperglycemia, unspecified; F43.9 Reaction to severe stress, unspecified; Z71.6 Tobacco abuse counseling; Z82.49 Family history of ischemic heart disease and other diseases of the circulatory system
CPT/HCPCS: 36415; 74022; 80048; 80053; 80305; 81003; 82150; 82374; 83036; 83690; 83735; 83880; 84100; 84436; 84439; 84443; 84479; 84484; 85025; 85610; 85730; 86886; 86900; 86901; 86920; 87040; 87070; 87075; 87081; 87186; 87205; 88304; 96365; 96367; 96375; 99285; C9113; J0330; J1100; J1170; J1885; J2001; J2175; J2270; J2405; J2543; J2704; J2710; J2765; J3010; J3490; J7030; J7042; J7060; J7120

== ENCOUNTER 2020-01-04 08:13 | Emergency (ER) | payer SELFPAY ==
[~2020-01-04] VITALS: Ht 175.3 cm; Wt 81.6 kg
[~2020-01-04 08:13] MED LIST: DOCU-299 PO; LEVO500T98 PO; METR500T1 PO
[2020-01-04 08:17] VITALS: BP 105/74
--- NOTE | 2020-01-04 08:19 | NUR ---
Patient ambulated to bed 11. RN evaluating patient at bedside.
--- NOTE | 2020-01-04 08:27 | NUR ---
24 YO MALE CO POST OP WOUND DRAINAGE. PT HAD APPY ON SUNDAY AND THE INCISION ON HIS RIGHT SIDE IS NOT DRAINING. PT STATES THAT THERE IS NO PAIN AT INCISION SITE BUT THERE IS DRAINAGE ON THE DRESSING. NO PMH TAKING ATB AT THIS TIME
--- NOTE | 2020-01-04 08:37 | NUR ---
DR WOODALL AT BEDSIDE EVALUATING PT
--- NOTE | 2020-01-04 08:51 | NUR ---
IV ESTABLISHED AND BLOOD DRAWN. BLOOD GIVEN TO UNIT SECY
--- NOTE | 2020-01-04 08:55 | NUR ---
CT EXPLAINED TO PT AND CONSENT SIGNED
[2020-01-04 09:05] LABS: BASOPHILS # (AUTO) 0.1 K/uL (0.00-0.22); BASOPHILS % (AUTO) 0.5 % (0.0-2.0); EOSINOPHILS # (AUTO) 0.2 K/uL (0-0.4); EOSINOPHILS % (AUTO) 1.2 % (0.0-4.0); HEMATOCRIT 36.3 % (36-52); HEMOGLOBIN 12.2 g/dL (12.0-18.0); LYMPHOCYTES # (AUTO) 2.1 K/uL (2.0-11.5); MEAN CORPUSCULAR HEMOGLOBIN 29 pg (27-31); MEAN CORPUSCULAR HGB CONC 34 g/dL (33-37); MEAN CORPUSCULAR VOLUME 85.1 fL (80-94); MONOCYTES # (AUTO) 1.4 K/uL (0.8-1.0); MONOCYTES % (AUTO) 8.8 % (1.7-9.3); NEUTROPHILS # (AUTO) 12.6 K/uL (1.8-7.7); PLATELET COUNT (AUTO) 515 K/uL (140-450); RED BLOOD CELL COUNT(AUTO) 4.26 MIL/uL (4.20-6.10); RED CELL DISTRIBUTION WIDTH 13.7 % (11.6-13.7); WHITE BLOOD COUNT (AUTO) 16.4 K/uL (4.8-10.8)
[2020-01-04 09:08] LABS: ALBUMIN 3.1 g/dL (3.4-5.0); ANION GAP 15.8 (8-16); CARBON DIOXIDE 23.7 mmol/L (21-32); CREATININE 0.9 mg/dL (0.6-1.3); POTASSIUM 3.5 mmol/L (3.5-5.1); TOTAL BILIRUBIN 0.4 mg/dL (0.0-1.0)
--- NOTE | 2020-01-04 09:14 | NUR ---
PT TAKEN TO CT VIA [facility].
[2020-01-04 09:23] LABS: NEUTROPHILS % (AUTO) 76.5 % (42.2-75.2)
--- NOTE | 2020-01-04 09:27 | NUR ---
pt returned from ct via [facility]
--- NOTE | 2020-01-04 10:06 | NUR ---
OLD DRESSING REMOVED AND SKIN CLEANED. NEW DRESSING APPLIED.
[2020-01-04 10:13] VITALS: BP 105/74
--- NOTE | 2020-01-04 10:14 | NUR ---
Patient discharged with v/s stable. Written and verbal after care instructions given and explained. Patient verbalized understanding. Ambulatory with steady gait. All questions addressed prior to discharge. Advised to follow up with PMD.
== END 2020-01-04 10:14 | disposition home or self-care (01) ==
LOC: MED 08:13
DX: G89.18 Other acute postprocedural pain (principal); R10.9 Unspecified abdominal pain; R19.7 Diarrhea, unspecified; Z79.899 Other long term (current) drug therapy; Z48.00 Encounter for change or removal of nonsurgical wound dressing
CPT/HCPCS: 36415; 74177; 80053; 85025; 99285; Q9967

== ENCOUNTER 2020-01-14 13:20 | Emergency (ER) | payer MEDICAID, SELFPAY ==
[~2020-01-14] VITALS: Ht 175.3 cm; Wt 82.3 kg
[2020-01-14 13:25] VITALS: BP 114/72
--- NOTE | 2020-01-14 13:31 | NUR ---
PT TAKEN TO BED 12.
--- NOTE | 2020-01-14 13:39 | NUR ---
DR. CAIN EVALUATING PT AT BEDSIDE
--- NOTE | 2020-01-14 13:58 | NUR ---
LAB STATES A LIVESTOCK SLAUGHTERER WILL COME TO DRAW BLOOD
--- NOTE | 2020-01-14 14:12 | NUR ---
LABS DRAWN BEDSIDE AND HANDED TO [employer]PER[employer]
[2020-01-14 14:18] LABS: BASOPHILS # (AUTO) 0.1 K/uL (0.00-0.22); BASOPHILS % (AUTO) 0.7 % (0.0-2.0); EOSINOPHILS # (AUTO) 0.2 K/uL (0-0.4); EOSINOPHILS % (AUTO) 1.6 % (0.0-4.0); HEMATOCRIT 34.3 % (36-52); HEMOGLOBIN 11.4 g/dL (12.0-18.0); LYMPHOCYTES # (AUTO) 2.5 K/uL (2.0-11.5); LYMPHOCYTES % (AUTO) 21.8 % (20.5-51.1); MEAN CORPUSCULAR HEMOGLOBIN 29 pg (27-31); MEAN CORPUSCULAR HGB CONC 33 g/dL (33-37); MEAN CORPUSCULAR VOLUME 86.6 fL (80-94); MONOCYTES # (AUTO) 1.1 K/uL (0.8-1.0); MONOCYTES % (AUTO) 9.3 % (1.7-9.3); NEUTROPHILS # (AUTO) 7.7 K/uL (1.8-7.7); NEUTROPHILS % (AUTO) 66.6 % (42.2-75.2); PLATELET COUNT (AUTO) 466 K/uL (140-450); RED BLOOD CELL COUNT(AUTO) 3.95 MIL/uL (4.20-6.10); RED CELL DISTRIBUTION WIDTH 14.8 % (11.6-13.7); WHITE BLOOD COUNT (AUTO) 11.6 K/uL (4.8-10.8)
--- NOTE | 2020-01-14 14:30 | NUR ---
PATIENT TAKEN TO CT
[2020-01-14 14:38] LABS: ALBUMIN 3.5 g/dL (3.4-5.0); ANION GAP 9.9 (8-16); CARBON DIOXIDE 28.2 mmol/L (21-32); POTASSIUM 4.1 mmol/L (3.5-5.1); TOTAL BILIRUBIN 0.3 mg/dL (0.0-1.0)
[2020-01-14 16:40] VITALS: BP 110/80
== END 2020-01-14 16:40 | disposition home or self-care (01) ==
LOC: MED 13:20
DX: R10.84 Generalized abdominal pain (principal); Z79.899 Other long term (current) drug therapy; Z90.49 Acquired absence of other specified parts of digestive tract
CPT/HCPCS: 36415; 80053; 85025; 99284

== ENCOUNTER 2020-01-23 09:24 | Emergency (ER) | payer MEDICAID ==
[~2020-01-23] VITALS: Ht 175.3 cm; Wt 80.3 kg
[2020-01-23 09:25] VITALS: BP 130/74
--- NOTE | 2020-01-23 09:30 | NUR ---
Pt taken to bed 7.
--- NOTE | 2020-01-23 09:38 | NUR ---
Patient being evaluated by Dr. Shannon at bedside.
[2020-01-23] MEDS ORDERED: NACL 0.9% 1,000 ML IV ONE (09:45)
[2020-01-23] MEDS ORDERED: KETOROLAC 30 MG/ML VIAL IVP ONE (09:45)
--- NOTE | 2020-01-23 09:54 | NUR ---
PT IS 24 YO MALE PRESENTING TO ER WITH C/O LLQ ABDOMINAL SHARP ABDOMINAL PAIN 09/02. PT WAS ADMITTED ON 12/29/19 FOR LAPROSCOPIC APPENDECTOMY AND DISCHARGED. PT REPORTS WORSENING ABDOMINAL PAIN X1 WEEK. PT REPORTS BOTH MUSCULAR PAIN AND SHARP PAIN SLIGHTLY ABOVE WHERE THE MUSCULAR PAIN IS. PT DENIES N/V, BUT REPORTS HAVING TWO BOUTS OF DIARRHEA, AND LOOSER STOOL IN GENERAL. BOWEL SOUNDS ARE ACTIVE IN ALL QUADRANTS BUT PT REPORTS TENDERNESS UPON PALPATION. PT DENIES FEVER OR CHILLS, SOB, COUGH. VSS. PT HAS SMALL SURGICAL SCARS FROM LAP APPENDECTOMY, SKIN IS PINK/WARM/DRY; AAOX4, PERRL, WITH EVEN AND STEADY GAIT; LUNGS CLEAR BL, BREATHING UNLABORED; HR EVEN AND REGULAR, BL PERIPHERAL PULSES PRESENT; PATIENT POSITIONED FOR COMFORT; HOB ELEVATED; BED DOWN. PHM: LAP APPENDECTOMY 12/29/19 RE[facility]NA
--- NOTE | 2020-01-23 09:58 | NUR ---
LAB AT BEDSIDE FOR BLOOD DRAW.
--- NOTE | 2020-01-23 09:58 | NUR ---
CONSENT FOR CT WITH IV CONTRAST SIGNED BY PT.
[2020-01-23 10:05] LABS: BASOPHILS % (AUTO) 0.4 % (0.0-2.0); EOSINOPHILS # (AUTO) 0.2 K/uL (0-0.4); EOSINOPHILS % (AUTO) 2.6 % (0.0-4.0); HEMATOCRIT 37.1 % (36-52); HEMOGLOBIN 12.3 g/dL (12.0-18.0); LYMPHOCYTES % (AUTO) 27.9 % (20.5-51.1); MEAN CORPUSCULAR HEMOGLOBIN 29 pg (27-31); MEAN CORPUSCULAR HGB CONC 33 g/dL (33-37); MEAN CORPUSCULAR VOLUME 86.2 fL (80-94); MONOCYTES # (AUTO) 0.5 K/uL (0.8-1.0); MONOCYTES % (AUTO) 7.7 % (1.7-9.3); NEUTROPHILS # (AUTO) 4.3 K/uL (1.8-7.7); NEUTROPHILS % (AUTO) 61.4 % (42.2-75.2); PLATELET COUNT (AUTO) 284 K/uL (140-450); RED BLOOD CELL COUNT(AUTO) 4.31 MIL/uL (4.20-6.10); RED CELL DISTRIBUTION WIDTH 14.3 % (11.6-13.7); WHITE BLOOD COUNT (AUTO) 7.1 K/uL (4.8-10.8)
[2020-01-23 10:13] LABS: ANION GAP 11.1 (8-16); CARBON DIOXIDE 29.7 mmol/L (21-32); CREATININE 0.9 mg/dL (0.6-1.3); POTASSIUM 3.8 mmol/L (3.5-5.1)
--- NOTE | 2020-01-23 10:18 | NUR ---
URINE SAMPLE COLLECTED AT THIS TIME.
[2020-01-23 10:19] LABS: ALBUMIN 3.7 g/dL (3.4-5.0); BILIRUBIN,DIRECT 0.1 mg/dL (0.0-0.3); TOTAL BILIRUBIN 0.6 mg/dL (0.0-1.0)
--- NOTE | 2020-01-23 10:22 | NUR ---
Patient taken to CT scan via wheelchair by tech.
--- NOTE | 2020-01-23 11:59 | NUR ---
IV removed, catheter intact and site benign. Applied folded 4x4 gauze and tape to stop bleeding.
[2020-01-23 12:00] VITALS: BP 112/50
--- NOTE | 2020-01-23 12:00 | NUR ---
Patient discharged with v/s stable. Written and verbal after care instructions given and explained. Patient alert, oriented and verbalized understanding of instructions. Ambulatory with steady gait. All questions addressed prior to discharge. ID band removed. Patient advised to follow up with PMD. Rx of Dicyclomine Hydrochloride 10mg/5ml given. Copies of labs and CT report along with a CD with CT images with given to patient for follow up with Dr. Marcial. Patient educated on indication of medication including possible reaction and side effects. Opportunity to ask questions provided and answered.
== END 2020-01-23 12:00 | disposition home or self-care (01) ==
LOC: MED 09:24
DX: R10.32 Left lower quadrant pain (principal); Z79.899 Other long term (current) drug therapy
CPT/HCPCS: 36415; 74177; 80048; 80076; 85025; 96361; 96374; 99285; J1885; J7030; Q9967